=== PATIENT | female | born 1955 | race Caucasian/White ===

== ENCOUNTER → 2016-09-05 | Outpatient (CLI) | payer OTHER | LOC: BRMIMAGING 08:33 | PROVIDERS: ATTEND Internal Medicine Gastroenterology | DX: K72.90 Hepatic failure, unspecified without coma (principal); Z94.4 Liver transplant status | CPT/HCPCS: 76705-PO ==

== ENCOUNTER → 2016-11-01 | Outpatient (CLI) | payer OTHER | LOC: BMCIMAGING 08:17 | PROVIDERS: ATTEND Family Medicine | DX: Z12.31 Encounter for screening mammogram for malignant neoplasm of breast (principal); Z94.4 Liver transplant status | CPT/HCPCS: G0202 ==